=== PATIENT | female | born 1935 | race African-American/Black ===

== ENCOUNTER 2020-07-06 17:19 | Outpatient (CLI) | payer MEDICARE, MEDICAID ==
--- NOTE | 2020-07-06 18:19 | XRAY Report ---
PROCEDURE: Chest 2 View X-Ray INDICATIONS: RIB PAIN AND DYSPNEA TECHNIQUE: 2 view(s) of the chest. COMPARISON: None. FINDINGS: Surgical changes and devices: Extensive fixation of mid to lower thoracic spine is seen with surgical hardware in place. Patient is status post bilateral shoulder reverse arthroplasty. Lungs and pleura: No pleural effusions or pneumothorax. Lungs are clear. Mediastinum: Mildly tortuous thoracic aorta is seen. Heart size is borderline enlarged. Bones and chest wall: No suspicious bony abnormalities. Soft tissues appear unremarkable. IMPRESSION: No acute cardiopulmonary pathology. Reviewed by: Kory Garg MD on 07/06/2020 5:18 PM [facility] Approved by: Kory Garg MD on 07/06/2020 5:18 PM [facility] Station ID: [id number]
== END 2020-07-06 17:20 | disposition home or self-care (01) ==
LOC: DI 17:19
PROVIDERS: ATTEND Internal Medicine
DX: R07.81 Pleurodynia (principal); R06.00 Dyspnea, unspecified
CPT/HCPCS: 71046

== ENCOUNTER 2020-10-04 09:26 | Outpatient (CLI) | payer MEDICARE, MEDICAID | END 2020-10-04 09:27 | disposition home or self-care (01) | LOC: RT 09:26 | PROVIDERS: ATTEND Internal Medicine | DX: R06.2 Wheezing (principal); R06.00 Dyspnea, unspecified | CPT/HCPCS: 94060 ==

== ENCOUNTER 2020-10-14 16:26 | Outpatient (CLI) | payer MEDICARE, MEDICAID | END 2020-10-14 16:27 | disposition home or self-care (01) | LOC: COV 16:26 | PROVIDERS: ATTEND Family Medicine | DX: Z20.822 Contact with and (suspected) exposure to COVID-19 (principal) ==

== ENCOUNTER 2021-08-02 16:29 | Outpatient (CLI) | payer MEDICARE, MEDICAID ==
--- NOTE | 2021-08-02 17:19 | XRAY Report ---
PROCEDURE: Chest 2 View X-Ray INDICATIONS: CHEST PAIN AND COUGH TECHNIQUE: 2 view(s) of the chest. COMPARISON: July 06, 2020 FINDINGS: SUPPORT DEVICES: Bilateral shoulder arthroplasties and posterior element thoracic hardware is noted. LUNGS/PLEURA: No focal consolidation, pleural effusion or space-occupying pneumothorax. MEDIASTINUM: The cardiomediastinal silhouette is within normal limits. BONES/SOFT TISSUES: No acute abnormality. IMPRESSION: 1.No acute cardiopulmonary abnormality. Reviewed by: Yogesh Mathias MD on 08/02/2021 5:18 PM PDT Approved by: Yogesh Mathias MD on 08/02/2021 5:18 PM PDT Station ID: [id number]
== END 2021-08-02 16:30 | disposition home or self-care (01) ==
LOC: DI 16:29
PROVIDERS: ATTEND Internal Medicine
DX: R06.2 Wheezing (principal); R05.9 Cough, unspecified

== ENCOUNTER 2021-12-23 08:00 | Outpatient (CLI) | payer MEDICARE, MEDICAID ==
[2021-12-23 16:05] LABS: BILIRUBIN,URINE NEGATIVE (NEGATIVE); GLUCOSE, URINE (UA) NEGATIVE (NEGATIVE); KETONES,URINE (UA) NEGATIVE (NEGATIVE); LEUKOCYTE ESTERASE, URINE NEGATIVE (NEGATIVE); NITRITE,URINE NEGATIVE (NEGATIVE); OCCULT BLOOD,URINE NEGATIVE (NEGATIVE); PH,URINE 6.5 PH (5.0-7.5); PROTEIN,URINE NEGATIVE (NEGATIVE); UROBILINOGEN,URINE 0.2 (NORMAL) E.U./dL (NORMAL)
[2021-12-23 16:48] LABS: BACTERIA,URINE None Seen /HPF (None Seen); CASTS, URINE 3-5 Hyaline Casts /LPF; CLARITY,URINE CLEAR (CLEAR); RBC,URINE None Seen /HPF (0-5); SQUAMOUS EPITHELIAL CELL,UR MOD Squamous (<= Few); WBC,URINE 0-3 /HPF (0-5)
== END 2021-12-23 23:59 ==
LOC: LAB.R 08:00
PROVIDERS: ATTEND Internal Medicine
DX: R32 Unspecified urinary incontinence (principal); E11.9 Type 2 diabetes mellitus without complications; R52 Pain, unspecified; R25.1 Tremor, unspecified; R53.1 Weakness
CPT/HCPCS: 81001; 87086

== ENCOUNTER 2022-08-29 08:00 | Outpatient (CLI) | payer MEDICARE, MEDICAID ==
--- NOTE | 2022-08-30 10:02 | XRAY Report ---
PROCEDURE: Chest 2 View X-Ray INDICATIONS: ACUTE COVID-19 TECHNIQUE: 2 views of the chest were acquired. COMPARISON: 08/02/2021 FINDINGS: Surgical changes and devices: Bilateral shoulder arthroplasties, multilevel thoracic toño and pedicle screw fixation. Lungs and pleura: No pleural effusions or pneumothorax. Lungs are clear. Mediastinum: Mediastinal contours are normal. Heart size is normal. Bones and chest wall: No suspicious bony abnormalities. Soft tissues appear unremarkable. IMPRESSION: No evidence acute pulmonary process. Reviewed by: Pastor Garland MD on 08/30/2022 10:00 AM [facility] Approved by: Pastor Garland MD on 08/30/2022 10:00 AM PST Station ID: [id number]
== END 2022-08-29 23:59 | disposition home or self-care (01) ==
LOC: DI.N 08:00
PROVIDERS: ATTEND Physician Assistant
DX: U07.1 COVID-19 (principal)

== ENCOUNTER 2022-11-23 15:12 | Outpatient (CLI) | payer MEDICARE, MEDICAID ==
--- NOTE | 2022-11-23 18:38 | CT Report ---
PROCEDURE: HEAD WO INDICATIONS: HEADACHE TECHNIQUE: Noncontrast 4.5 mm thick angled axial sections acquired from the foramen magnum to the vertex. For r adiation dose reduction, the following was used: automated exposure control, adjustment of mA and/or kV according to patient size. COMPARISON: None. FINDINGS: Image quality: Excellent. CSF spaces: Basal cisterns are patent. No this arachnoid cyst seen along the superior posterior asp ect of the left frontal lobe that measures up to 3.7 cm. Ventricles are normal in size and shape. Brain: No midline shift. No intracranial masses or hemorrhage. Rubio-white matter interface is norm al. Skull and face: Calvarium and visualized facial bones are intact, without suspicious lesions. Sinuses: At least moderate mucosal thickening is seen within the left maxillary sinus. Milder mucosal thickening is seen elsewhere within the paranasal sinuses. No significant abnormal fluid can be seen within the mastoid air cells. IMPRESSION: Left superior arachnoid cyst incidentally noted. Otherwise, noncontrast head CT within normal limits for age. Reviewed by: Jani Holley MD on 11/23/2022 5:37 PM [place] Approved by: Jani Holley MD on 11/23/2022 5:37 PM [place] Station ID: [id number]
== END 2022-11-23 15:13 | disposition home or self-care (01) ==
LOC: DI 15:12
PROVIDERS: ATTEND Internal Medicine
DX: R51.9 Headache, unspecified (principal); G93.0 Cerebral cysts

== ENCOUNTER 2023-04-03 14:14 | Outpatient (CLI) | payer MEDICARE, MEDICAID ==
--- NOTE | 2023-04-10 09:35 | Mammography Report ---
BILATERAL DIGITAL SCREENING MAMMOGRAM 3D/2D: 04/03/2023 CLINICAL: Routine screening. No prior exams were available for comparison. Both breasts are almost entirely fatty (category a/<25% glandular tissue). There are benign vascular calcifications in both breasts. No significant masses, calcifications, or other findings are seen in either breast. IMPRESSION: BENIGN There is no mammographic evidence of malignancy. A 1 year screening mammogram is recommended. This exam was interpreted at Station ID: [id number]. NOTE: For mammograms, a report in lay terms will be sent to the patient. Approximately 15% of breast malignancies will not be visualized mammographically. In the management of a palpable breast mass, a negative mammogram must not discourage biopsy of a clinically suspicious lesion. Electronically Signed By: Maria G feliciano/suzie:04/07/2023 14:50:09 letter sent: No_Letter ACR BI-RADS Category 2: Benign Finding(s) 3342F PARENCHYMAL PATTERN: (F) - The breast(s) demonstrate(s) diffuse fatty replacement. BI-RADS CATEGORY: (2) - 2 Mammogram [id number] 1 year screening LATERALITY: (B)
== END 2023-04-03 14:15 | disposition home or self-care (01) ==
LOC: DI 14:14
PROVIDERS: ATTEND Internal Medicine
DX: Z12.31 Encounter for screening mammogram for malignant neoplasm of breast (principal)

== ENCOUNTER 2023-11-29 16:02 | Outpatient (CLI) | payer MEDICARE, MEDICAID ==
--- NOTE | 2023-11-29 17:09 | CT Report ---
PROCEDURE: Head WO INDICATIONS: POOR MEMORY TECHNIQUE: Noncontrast 4.5 mm thick angled axial sections acquired from the foramen magnum to the vertex. For r adiation dose reduction, the following was used: automated exposure control, adjustment of mA and/or kV according to patient size. COMPARISON: CT head 11/23/2022. FINDINGS: Image quality: Excellent. CSF spaces: Basal cisterns are patent. No extra-axial fluid collections. Ventricles are normal in size and shape. Brain: No midline shift. No intracranial masses or hemorrhage. Age-related global volume loss and c hronic microvascular ischemic changes. Intracranial atherosclerotic vascular calcifications. Rubio-wh ite matter interface is normal. Skull and face: Calvarium and visualized facial bones are intact, without suspicious lesions. Sinuses: Complete opacification of the left frontal sinus and anterior ethmoid air cells. The mastoid s are clear. IMPRESSION: 1.No acute intracranial pathology. 2.Mild diffuse age-related volume loss and chronic microvascular ischemic changes. Reviewed by: Magan Rudolph MD on 11/29/2023 5:07 PM PST Approved by: Magan Rudolph MD on 11/29/2023 5:07 PM PST Station ID: [id number]
== END 2023-11-29 16:03 | disposition home or self-care (01) ==
LOC: DI 16:02
PROVIDERS: ATTEND Internal Medicine
DX: R41.3 Other amnesia (principal); G31.89 Other specified degenerative diseases of nervous system; I67.82 Cerebral ischemia

== ENCOUNTER 2024-01-30 09:19 | Outpatient (CLI) | payer MEDICARE, MEDICAID ==
--- NOTE | 2024-01-30 09:41 | CARDIAC PROCEDURE NOTE ---
Stress Test Report Service Date: 01/30/24 Service Time: 09:30 Ordering Provider: Leonora Nash MD Indication for Test: Preoperative risk stratification prior to contemplated major orthopedic surgery in a patient with multiple cardiac risk factors. Significant Medical History: Florence is referred for a treadmill stress echocardiogram today for preoperative assessment prior to contemplated spine surgery, in the setting of longstanding hypertension, hyperlipidemia and diabetes. She has multiple orthopedic pain concerns but does not report experiencing any chest discomfort. She is rather sedentary, though she attends physical therapy sessions twice weekly that include walking on a treadmill. She has asthma and uses albuterol as needed. She has had lower extremity edema with a BNP level that was normal. Cardiac Risk Factors: Positive for history of, and treatment for, hypertension, diabetes and hyperlipidemia for "more than 30 years"; no history of tobacco smoking nor known family history of coronary heart disease. Type of Stress Test: ETT with Echocardiography Procedure: -Exercise Treadmill Test- After signing informed consent, the patient underwent echo imaging at rest and then performed treadmill exercise using a Modified [place] protocol. The patient exercised for 2 minutes 58 seconds and achieved a peak heart rate of 129 (98 percent predicted maximum heart rate for age), and an estimated workload of 2.3 METS. The test was terminated due to fatigue/shortness of breath. Resting heart rate: 92 Peak heart rate: 129 Normal response to exercise. Resting BP: 143/69 Peak BP: 220/56 Borderline at rest with hypertensive BP response to exercise. Room air oxygen saturation ranged between 93-95% (after 2 puffs albuterol for O2 sat 91%) Rhythm during exercise: Sinus rhythm throughout with rare isolated PACs and PVCs. Symptoms: The patient denied experiencing any chest pressure/discomfort/pain. EKG at rest showed sinus rhythm with probable left ventricular hypertrophy with mild secondary repolarization abnormalities. EKG at peak stress showed no ischemia by EKG criteria. In Recovery HR decreased towards baseline with slower reduction in BP (HR 101, BP 200/84 at 5:59). Echo imaging, performed at rest and with stress, will be reported separately. Asa Knowles MD, was present throughout this treadmill stress study and supervised it in its entirety. Summary: 1) Exercise tolerance markedly reduced for age as evidenced by SIMON of 40% (modified [place] scale, adjusted for age 69). 2) Abnormal resting EKG. 3) Adequate level of exercise was achieved on this treadmill stress test. 4) Abnormal hypertensive BP response to exercise. 5) No ischemic changes by EKG criteria were seen at peak stress. 6) Echo image interpretation reveals normal resting left ventricular size and systolic function, with mild LVH and mild aortic regurgitation. Following peak exercise there was appropriate hyperdynamic augmentation of all segments, indicating no evidence of prior infarct or inducible ischemia. No elevation of estimated pulmonary artery systolic pressure seen on screening study. See separate report for more details. Conclusions and Recommendations: 1) Overall this is a reassuring treadmill stress echocardiogram with no symptom, EKG or echocardiographic evidence of inducible ischemia. 2) Although exercise time was reduced, the SIMON calculation provided above is not available for an 88 yr old. The limited exercise time was likely multifactorial, including due to balance concerns and diffuse joint and back discomfort.
== END 2024-01-30 09:20 | disposition home or self-care (01) ==
LOC: DI 09:19
PROVIDERS: ATTEND Internal Medicine
DX: Z13.6 Encounter for screening for cardiovascular disorders (principal); R41.3 Other amnesia; I10 Essential (primary) hypertension; E78.5 Hyperlipidemia, unspecified; E11.9 Type 2 diabetes mellitus without complications
CPT/HCPCS: 93350